=== PATIENT | female | born 1940 | race Caucasian/White ===

== ENCOUNTER 2016-09-08 18:09 | Inpatient (IN) | payer MEDICARE, OTHER ==
[~2016-09-08] VITALS: Ht 162.6 cm; Wt 67.1 kg
[~2016-09-08 18:09] MED LIST: IBUP-1482 PO; MEMA10TA PO; ROSU10TA PO
[2016-09-08] MEDS ORDERED: CELEBREX PO (18:36)
[2016-09-08] MEDS ORDERED: ATOR40TA PO (18:36)
[2016-09-08] MEDS ORDERED: LEVOTHYROXINE PO (18:36)
[2016-09-08 18:51] LABS: BASOPHILS # (AUTO) 0.1 K/uL (0.0-8.0); BASOPHILS % (AUTO) 0.6 % (0.0-2.0); EOSINOPHILS # (AUTO) 0.1 K/uL (0.0-0.7); EOSINOPHILS % (AUTO) 0.7 % (0.0-7.0); HEMATOCRIT 42.2 % (31.2-41.9); HEMOGLOBIN 13.9 g/dL (10.9-14.3); LYMPHOCYTES % (AUTO) 16.2 % (20.5-51.5); MEAN CORPUSCULAR HEMOGLOBIN 31.1 uug (24.7-32.8); MEAN CORPUSCULAR HGB CONC 33 g/dL (32.3-35.6); MEAN CORPUSCULAR VOLUME 94.3 fL (75.5-95.3); MONOCYTES # (AUTO) 0.3 K/uL (2.0-10.0); MONOCYTES % (AUTO) 2.7 % (0.0-11.0); NEUTROPHILS # (AUTO) 9.7 K/uL (1.8-8.9); NEUTROPHILS % (AUTO) 79.8 % (38.5-71.5); PLATELET COUNT (AUTO) 290 K/uL (179-408); RED BLOOD CELL COUNT(AUTO) 4.47 MIL/uL (3.63-4.92); RED CELL DISTRIBUTION WIDTH 12.7 % (12.3-17.7); WHITE BLOOD COUNT (AUTO) 12.2 K/uL (3.8-11.8)
[2016-09-08 18:57] LABS: CALCIUM 9.8 mg/dL (8.5-10.1); CREATININE 0.8 mg/dL (0.6-1.3)
[2016-09-08] MEDS ORDERED: ACETAMINOPHEN 325 MG TABLET ONE (19:27)
[2016-09-08] MEDS ORDERED: DEXAMETHASONE SOD PHOSPHATE 4 MG INJ IV ONE (22:45)
[2016-09-08] MEDS ORDERED: LEVOFLOXACIN 750MG/D5W 150 ML IV ONE ×2 (22:45→23:09)
[2016-09-08] MEDS ORDERED: IV NORMAL SALINE 1000 ML BAG IV ONE (22:45)
[2016-09-08] MEDS ORDERED: DEXAMETHASONE SOD PHOSPHATE 10 MG INJ ONE (23:09)
[2016-09-08] MEDS ORDERED: MORPHINE SULFATE 2 MG/1 ML DISP.SYRIN IV PRN (23:30)
[2016-09-08] MEDS ORDERED: ONDANSETRON 4 MG/2 ML VIAL IV PRN (23:30)
[2016-09-08] MEDS ORDERED: MAGNESIUM HYDROXIDE 30 ML LIQUID UDC PO PRN (23:30)
[2016-09-08] MEDS ORDERED: TEMAZEPAM 7.5 MG CAPSULE PO PRN (23:30)
[2016-09-08] MEDS ORDERED: HYDROCODONE/APAP 5-325MG TABLET PO PRN (23:30)
[2016-09-08] MEDS ORDERED: Z GUARD REMEDY PASTE 57 GM TUBE TOP PRN (23:30)
--- NOTE | 2016-09-09 00:05 | NUR ---
Pt. admitted to TELE, under care of Dr. Ventura Belongs List completed
[2016-09-09 00:15] VITALS: BP 118/73
[2016-09-09] MEDS ORDERED: HYDROCODONE/APAP 5-325MG TABLET ONE (00:56)
[2016-09-09] MEDS ORDERED: ALBUTEROL SULFATE 2.5 MG/3 ML NEBU ONE ×2 (01:02→05:16)
[2016-09-09] MEDS ORDERED: IPRATROPIUM BROMIDE 0.5 MG/2.5 ML NEBU ONE ×2 (01:03→05:15)
[2016-09-09] MEDS: ALBUTEROL SULFATE 2.5 MG/3 ML NEBU NEB PRN ×2 (01:05→05:23)
[2016-09-09] MEDS: IPRATROPIUM BROMIDE 0.5 MG/2.5 ML NEBU NEB PRN ×4 (01:06→20:52)
[2016-09-09 04:00] VITALS: BP 93/50
--- NOTE | 2016-09-09 05:56 | NUR ---
admitted pt from home to ER, c/o chest pain especially when coughing, pt stated [place] and [place] she came [place] from vacation she started coughing, coughing is accompanied by headache and earache, leg pain due to old hip surgery, knee surgery. ambulatory.medicated with norco with good relief. requested HHN and given x2 overnight.non productive cough.no distress. will continue to monitor.sinus rhythm,no chest pain reported. Addendum: 09/09/16 at 0657 by WICHO ANAYA RN productive coughing after few treatment, no bm,voided to bathroom only. all needs attended.
[2016-09-09] MEDS ORDERED: PANTOPRAZOLE SODIUM 40 MG TABLET.DR PO ONE (06:42)
[2016-09-09] MEDS: PANTOPRAZOLE SODIUM 40 MG TABLET.DR PO SCH (06:50)
[2016-09-09 06:57] LABS: BASOPHILS % (AUTO) 0.2 % (0.0-2.0); HEMATOCRIT 38.6 % (31.2-41.9); HEMOGLOBIN 13.2 g/dL (10.9-14.3); LYMPHOCYTES # (AUTO) 0.7 K/uL (20.0-40.0); LYMPHOCYTES % (AUTO) 7.5 % (20.5-51.5); MEAN CORPUSCULAR HEMOGLOBIN 32.1 uug (24.7-32.8); MEAN CORPUSCULAR HGB CONC 34 g/dL (32.3-35.6); MEAN CORPUSCULAR VOLUME 94.1 fL (75.5-95.3); MONOCYTES % (AUTO) 0.4 % (0.0-11.0); NEUTROPHILS # (AUTO) 8.3 K/uL (1.8-8.9); NEUTROPHILS % (AUTO) 91.9 % (38.5-71.5); PLATELET COUNT (AUTO) 272 K/uL (179-408); RED CELL DISTRIBUTION WIDTH 13.1 % (12.3-17.7)
[2016-09-09 07:14] LABS: ALBUMIN 3.3 g/dL (3.4-5.0); BILIRUBIN,TOTAL 0.3 mg/dL (0.2-1.0); CALCIUM 9.8 mg/dL (8.5-10.1); CREATININE 0.8 mg/dL (0.6-1.3); PHOSPHOROUS 2.8 mg/dL (2.5-4.9); POTASSIUM 3.8 mmol/L (3.5-5.1); TOTAL PROTEIN, SERUM 6.8 g/dL (6.4-8.2)
[2016-09-09 07:37] LABS: THYROID STIMULATING HORMONE 0.365 mIU/mL (0.358-3.740)
[2016-09-09] MEDS: ALBUTEROL SULFATE 2.5 MG/ 0.5 ML NEBU NEB PRN ×2 (07:46→20:53)
[2016-09-09] MEDS ORDERED: GUAIFENESIN/CODEINE 5 ML LIQUID UDC PO PRN (09:00)
[2016-09-09 11:47] VITALS: BP 101/48
[2016-09-09] MEDS: ACETAMINOPHEN 325 MG TABLET PO PRN (12:18)
[2016-09-09] MEDS: ASPIRIN 81 MG TAB.CHEW PO SCH (13:15)
[2016-09-09 15:43] VITALS: BP 110/46
[2016-09-09 19:57] VITALS: BP 95/50
--- NOTE | 2016-09-09 20:00 | NUR ---
RECEIVED PATIENT AWAKE IN BED WITH AT BEDSIDE. PATIENT IS A/O X4, CITIZ[place] OF [place] SPEAKING BUT ABLE TO MAKE NEEDS KNOWN. ON TELE SR. DENIES CHEST PAIN OR ANY OTHER PAIN. NO RESP. DISTRESS NOTED. VSS. CALL LIGHT IN REACH. ALL NEEDS ATTENDED. WILL CONTINUE TO MONITOR.
[2016-09-09] MEDS: ATORVASTATIN 40 MG TABLET PO SCH ×2 (20:35→21:00)
[2016-09-09] MEDS ORDERED: LEVOFLOXACIN 500 MG TABLET PO SCH (21:00)
[2016-09-10] VITALS: BP 99/46
[2016-09-10] MEDS: ACETAMINOPHEN 325 MG TABLET PO PRN (00:56)
--- NOTE | 2016-09-10 01:30 | NUR ---
HANDS OFF REPORT FROM JUSTIN PEREZ.
[2016-09-10] MEDS: IPRATROPIUM BROMIDE 0.5 MG/2.5 ML NEBU NEB PRN ×2 (02:33→08:49)
[2016-09-10] MEDS: ALBUTEROL SULFATE 2.5 MG/ 0.5 ML NEBU NEB PRN ×2 (02:33→08:49)
[2016-09-10 04:00] VITALS: BP 97/50
[2016-09-10] MEDS: PANTOPRAZOLE SODIUM 40 MG TABLET.DR PO SCH (06:13)
--- NOTE | 2016-09-10 06:28 | NUR ---
PT IN BED RESTING, IN NO ACUTE SIGNS OF DISTRESS. IV SITE ON R WRIST REMOVED USING ASEPTIC TECHNIQUE PER PTS REQUEST, "I DONT NEED IT". SAFETY MAINTAINED. CALL LIGHT WITHIN REACH.
[2016-09-10 06:43] LABS: CALCIUM 9.3 mg/dL (8.5-10.1); CREATININE 0.7 mg/dL (0.6-1.3); POTASSIUM 4.3 mmol/L (3.5-5.1)
[2016-09-10 06:56] LABS: BASOPHILS % (AUTO) 0.3 % (0.0-2.0); EOSINOPHILS % (AUTO) 0.2 % (0.0-7.0); HEMATOCRIT 35.4 % (31.2-41.9); HEMOGLOBIN 12.1 g/dL (10.9-14.3); LYMPHOCYTES # (AUTO) 1.6 K/uL (20.0-40.0); LYMPHOCYTES % (AUTO) 17.4 % (20.5-51.5); MEAN CORPUSCULAR HEMOGLOBIN 32.3 uug (24.7-32.8); MEAN CORPUSCULAR HGB CONC 34 g/dL (32.3-35.6); MEAN CORPUSCULAR VOLUME 94.3 fL (75.5-95.3); MONOCYTES # (AUTO) 0.5 K/uL (2.0-10.0); MONOCYTES % (AUTO) 5.3 % (0.0-11.0); NEUTROPHILS # (AUTO) 7.1 K/uL (1.8-8.9); NEUTROPHILS % (AUTO) 76.8 % (38.5-71.5); PLATELET COUNT (AUTO) 229 K/uL (179-408); RED BLOOD CELL COUNT(AUTO) 3.76 MIL/uL (3.63-4.92); WHITE BLOOD COUNT (AUTO) 9.2 K/uL (3.8-11.8)
[2016-09-10] MEDS ORDERED: predniSONE 20 MG TABLET PO SCH (08:00)
--- NOTE | 2016-09-10 08:00 | NUR ---
awake alert and oriented, denies of pain, no shortness of breath noted, Tele SR 60's, explained plan of care- verbalized understanding, no cough noted at this time, safety measures maintained, call lite within reach
[2016-09-10] MEDS: ASPIRIN 81 MG TAB.CHEW PO SCH (08:44)
--- NOTE | 2016-09-10 10:45 | NUR ---
seen by Dr Ventura- for d/c today- pt aware and in agreement
[2016-09-10 11:52] VITALS: BP 104/57
--- NOTE | 2016-09-10 12:20 | NUR ---
discharge instructions given , pharmacist here for medication instruction- verbalized understanding carleen ll instructions given. Tele dc/d- states to pick him up
--- NOTE | 2016-09-10 13:15 | NUR ---
escorted to car per w/c in stable condition under 's care- all belongings with her
== END 2016-09-10 13:25 | disposition home or self-care (01) | DRG 203 ==
LOC: ER 18:11 → TELE 23:53
PROVIDERS: ADMIT Family Medicine; ATTEND Internal Medicine
DX: J20.9 Acute bronchitis, unspecified (principal); R07.81 Pleurodynia; E78.5 Hyperlipidemia, unspecified; M19.90 Unspecified osteoarthritis, unspecified site; M81.0 Age-related osteoporosis without current pathological fracture; Z96.659 Presence of unspecified artificial knee joint; Z88.0 Allergy status to penicillin; D72.829 Elevated white blood cell count, unspecified; Z82.49 Family history of ischemic heart disease and other diseases of the circulatory system
CPT/HCPCS: 36415; 70030-TC; 71010; 83605; 83735; 84100; 84443; 85025; 85730; 87040; 93005; 93307; 94640; 94664; A4663; J1100; J1956; J3590; J7030; J7512

== ENCOUNTER 2017-08-26 13:08 | Emergency (ER) | payer MEDICARE, OTHER ==
[~2017-08-26] VITALS: Ht 160 cm; Wt 68.0 kg
[~2017-08-26 13:08] MED LIST changes: +ATOR40TA PO; +CELEBREX PO; -IBUP-1482 PO; +LEVOTHYROXINE PO; -MEMA10TA PO; -ROSU10TA PO
[2017-08-26] MEDS ORDERED: CELEBREX 200 MG (13:35)
[2017-08-26 13:50] LABS: *BILIRUBIN,URIN NEGATIVE (NEGATIVE); *BLOOD, URINE Trace-intact (NEGATIVE); *CLARITY,URINE CLEAR (CLEAR); *COLOR,URINE YELLOW (YELLOW); *KETONES,URINE NEGATIVE (NEGATIVE); *PROTEIN,URINE NEGATIVE (NEGATIVE); *UROBILINOGEN,URINE 0.2 E.U./dl (NORMAL); LEUKOCYTE ESTERASE ,URINE 1+ (NEGATIVE); NITRITE, URINE NEGATIVE (NEGATIVE); UGLUCOSE NEGATIVE (NEGATIVE)
[2017-08-26 13:59] LABS: RBC,URINE 0-3 /HPF (0-3); WBC,URINE 20-50 /HPF (0-3)
[2017-08-26 14:00] LABS: BACTERIA,URINE FEW /HPF (NONE SEEN); SQUAMOUS EPITHELIAL CELL,UR FEW /HPF (NONE SEEN)
[2017-08-26] MEDS ORDERED: PHENAZOPYRIDINE HCL 100 MG TABLET PO ONE (14:15)
[2017-08-26] MEDS ORDERED: PHENAZOPYRIDINE HCL 100 MG TABLET ONE (14:17)
--- NOTE | 2017-08-26 14:19 | NUR ---
Patient discharged to home in stable conditon with family. Written and verbal after care instructions given. Patient and family verbalized understanding of instructions. Stressed follow up with pmd.
== END 2017-08-26 14:20 | disposition home or self-care (01) ==
LOC: ER 13:09
DX: N39.0 Urinary tract infection, site not specified (principal); E78.00 Pure hypercholesterolemia, unspecified; Z90.710 Acquired absence of both cervix and uterus; Z88.0 Allergy status to penicillin; Z91.041 Radiographic dye allergy status; Z88.8 Allergy status to other drugs, medicaments and biological substances; Z79.899 Other long term (current) drug therapy
CPT/HCPCS: 81001; 87077; 87086; 87186; 99284; A4663

== ENCOUNTER 2018-10-12 08:27 | Inpatient (IN) | payer BC, MEDICARE, OTHER ==
[~2018-10-12] VITALS: Ht 160 cm; Wt 68.5 kg
[~2018-10-12 08:27] MED LIST changes: +CELEBREX 200 MG; -CELEBREX PO
--- NOTE | 2018-10-12 08:31 | NUR ---
FIRST DOSE OF NITRO GIVEN. VS 121/75, HR 71.
[2018-10-12] MEDS ORDERED: NITROGLYCERIN 0.4 MG/TAB BOTTLE SL ONE ×2 (08:33→08:45)
[2018-10-12] MEDS ORDERED: ASPIRIN 325 MG TABLET ONE (08:33)
--- NOTE | 2018-10-12 08:36 | NUR ---
2ND DOSE OF NITRO GIVEN. VS 131/81, HR 62.
[2018-10-12] MEDS ORDERED: ONDANSETRON 4 MG/2 ML VIAL ONE (08:37)
--- NOTE | 2018-10-12 08:41 | NUR ---
PT A/OX4, PRESENTS TO THE ER IN PRIVATE VEHICLE, C/O C/P THAT BEGAN THIS MORNING AROUND 0800. PT REPORTS SHE WOKE UP W/ THE C/P, PRESSURE-LIKE IN QUALITY, RADIATING TO THE L SHOULDER, 410, CONSTANT. VSS. SECONDARY COMPLAINT: NAUSEA PT DENIES SOB, VOMITING, DIZZINESS, HEADACHE.
--- NOTE | 2018-10-12 08:41 | NUR ---
3RD DOSE OF NITRO GIVEN. VS 121/54, HR 67.
[2018-10-12] MEDS ORDERED: ACETAMINOPHEN ES 500 MG TABLET PO ONE (08:45)
[2018-10-12] MEDS ORDERED: ASPIRIN 325 MG TABLET PO ONE (08:45)
[2018-10-12] MEDS ORDERED: ONDANSETRON 4 MG/2 ML VIAL IV ONE (08:45)
[2018-10-12] MEDS ORDERED: MORPHINE SULFATE 2 MG/1 ML DISP.SYRIN IV ONE (08:45)
[2018-10-12] MEDS ORDERED: PANTOPRAZOLE SODIUM 40 MG VIAL IV ONE (08:45)
[2018-10-12] MEDS ORDERED: PANTOPRAZOLE SODIUM 40 MG VIAL ONE (08:47)
[2018-10-12] MEDS ORDERED: ACETAMINOPHEN ES 500 MG TABLET ONE (08:47)
[2018-10-12] MEDS ORDERED: MORPHINE SULFATE 2 MG/1 ML DISP.SYRIN ONE (08:48)
[2018-10-12] MEDS ORDERED: LEVO50TA PO (08:50)
[2018-10-12] MEDS ORDERED: ALEN70TA3 PO (08:50)
[2018-10-12] MEDS ORDERED: CELE200C PO (08:50)
[2018-10-12] MEDS ORDERED: ASPI81TA31 PO (08:50)
[2018-10-12] MEDS ORDERED: ATOR40TA PO (08:50)
[2018-10-12] MEDS ORDERED: CHOL10005 PO (08:50)
[2018-10-12 08:52] LABS: BASOPHILS % (AUTO) 0.4 % (0.0-2.0); EOSINOPHILS # (AUTO) 0.1 K/uL (0.0-0.7); EOSINOPHILS % (AUTO) 1.9 % (0.0-7.0); HEMATOCRIT 43.1 % (31.2-41.9); HEMOGLOBIN 14.3 g/dL (10.9-14.3); LYMPHOCYTES # (AUTO) 2.3 K/uL (20.0-40.0); LYMPHOCYTES % (AUTO) 40.6 % (20.5-51.5); MEAN CORPUSCULAR HEMOGLOBIN 31.3 uug (24.7-32.8); MEAN CORPUSCULAR HGB CONC 33 g/dL (32.3-35.6); MEAN CORPUSCULAR VOLUME 94.7 fL (75.5-95.3); MONOCYTES # (AUTO) 0.3 K/uL (2.0-10.0); MONOCYTES % (AUTO) 6.3 % (0.0-11.0); NEUTROPHILS # (AUTO) 2.8 K/uL (1.8-8.9); NEUTROPHILS % (AUTO) 50.8 % (38.5-71.5); PLATELET COUNT (AUTO) 240 K/uL (179-408); RED BLOOD CELL COUNT(AUTO) 4.55 MIL/uL (3.63-4.92); WHITE BLOOD COUNT (AUTO) 5.5 K/uL (3.8-11.8)
[2018-10-12 08:56] LABS: CARBON DIOXIDE 29 mmol/L (21-32); CHLORIDE 106 mmol/L (98-107); CREATININE 0.5 mg/dL (0.6-1.3); GLUCOSE 98 mg/dL (74-106); UREA NITROGEN, BLOOD 17 mg/dL (7-18)
[2018-10-12] MEDS ORDERED: NITROGLYCERIN OINT 1 GM PACKET TP ONE ×2 (08:58→09:00)
[2018-10-12 09:08] LABS: ALANINE AMINOTRANSFERASE 32 U/L (14-59); ALKALINE PHOSPHATASE 81 U/L (50-136); ASPARTATE AMINOTRANSFERASE 21 U/L (15-37); BILIRUBIN,DIRECT 0.1 mg/dL (0.0-0.2); BILIRUBIN,TOTAL 0.7 mg/dL (0.2-1.0); TOTAL PROTEIN, SERUM 7.1 g/dL (6.4-8.2)
--- NOTE | 2018-10-12 09:22 | NUR ---
PT TAKEN TO RADIOLOGY FOR CT SCAN.
--- NOTE | 2018-10-12 09:35 | NUR ---
PT BACK IN ER FROM RADIOLOGY.
--- NOTE | 2018-10-12 09:54 | NUR ---
PAGED EPIC FOR PANEL CALL - AWAITING CALLBACK. ATTEMPT 1.
--- NOTE | 2018-10-12 09:57 | NUR ---
ELENI ARMSTRONG NP, IN ER SPEAKING W/ ER MD RE PT'S ADMISSION.
--- NOTE | 2018-10-12 10:16 | NUR ---
ADMITTING REPORT GIVEN TO ANJU ALBERT.
--- NOTE | 2018-10-12 10:22 | NUR ---
Pt. admitted to TELE 318, under care of WOLFGANG ARMSTRONG. Belongs List completed
[2018-10-12] MEDS ORDERED: IV NS 1000 ML 1,000 ML IV PRN (10:23)
[2018-10-12] MEDS ORDERED: MAG HYDROX/AL HYDROX/SIMETH 30 ML LIQUID UDC PO PRN (10:30)
[2018-10-12] MEDS ORDERED: NITROGLYCERIN 0.4 MG/TAB BOTTLE SL PRN (10:30)
[2018-10-12] MEDS ORDERED: MORPHINE SULFATE 2 MG/1 ML DISP.SYRIN IV PRN (10:30)
--- NOTE | 2018-10-12 10:45 | NUR ---
Received report from ANJU Catherine in ER. Patient admitted to telemetry room 318. Skin check done, belongings documented. assembly machine tool setter in place, patient is sinus rhythm. No complaints of pain or distress noted. Will continue to monitor and assess frequently.
[2018-10-12 11:59] VITALS: BP 123/53
[2018-10-12 15:16] VITALS: BP 91/40
[2018-10-12] MEDS ORDERED: IBUPROFEN 200 MG TABLET PO PRN (15:30)
--- NOTE | 2018-10-12 17:37 | NUR ---
1705 patient reported tingling/numbness on left side of face. Upon assessment swelling noted on upper and lower lips (unilateral to left). Assessed patient, vital signs stable. No changes in mentation. Bilateral strength/counter intelligence agent equal. iap displays analyst Janna assessed patient as well. WALL CLEANER Anabelle made aware, order to discontinue ibuprofen and add to allergies list. Ibuprofen was given once today. Per WALL CLEANER apply warm compress to alleviate headache.
[2018-10-12] MEDS ORDERED: ATORVASTATIN 40 MG TABLET PO SCH (18:00)
--- NOTE | 2018-10-12 18:38 | NUR ---
Patient resting, no complaints of pain or distress noted. Patient currently has warm compress on occipital region. Per reassessment, patient feels headache slowly resolving. steam clean machine operator in place, sinus rhythm. Will endorse care to oncoming shift.
--- NOTE | 2018-10-12 19:20 | NUR ---
Report received from off-going RN. Patient is awake alert and oriented x 4. Lying quietly in bed with family member at the bedside. Denies chest pain and discomfort at this time. No acute distress noted. Pt instructed to notify RN for pain, discomfort and assistance as needed. She verbalized understanding. Call light and pt's belongings placed within reach.
[2018-10-12 20:00] VITALS: BP 105/47
[2018-10-13] VITALS: BP 111/54
--- NOTE | 2018-10-13 03:28 | NUR ---
Report given to oncoming shift RN. The patient is resting quietly with eyes closed. No acute distress noted.
[2018-10-13 04:00] VITALS: BP 102/40
[2018-10-13] MEDS ORDERED: PANTOPRAZOLE SODIUM 40 MG TABLET.DR PO SCH (07:00)
[2018-10-13] MEDS ORDERED: LEVOTHYROXINE SODIUM 50 MCG TABLET PO SCH (07:00)
[2018-10-13 07:04] LABS: BASOPHILS # (AUTO) 0.1 K/uL (0.0-8.0); BASOPHILS % (AUTO) 1.1 % (0.0-2.0); EOSINOPHILS # (AUTO) 0.1 K/uL (0.0-0.7); HEMATOCRIT 39.2 % (31.2-41.9); HEMOGLOBIN 13.1 g/dL (10.9-14.3); LYMPHOCYTES # (AUTO) 1.9 K/uL (20.0-40.0); LYMPHOCYTES % (AUTO) 28.5 % (20.5-51.5); MEAN CORPUSCULAR HGB CONC 34 g/dL (32.3-35.6); MEAN CORPUSCULAR VOLUME 95.6 fL (75.5-95.3); MONOCYTES # (AUTO) 0.5 K/uL (2.0-10.0); MONOCYTES % (AUTO) 6.7 % (0.0-11.0); NEUTROPHILS # (AUTO) 4.2 K/uL (1.8-8.9); NEUTROPHILS % (AUTO) 61.7 % (38.5-71.5); PLATELET COUNT (AUTO) 218 K/uL (179-408); WHITE BLOOD COUNT (AUTO) 6.8 K/uL (3.8-11.8)
[2018-10-13 07:18] LABS: CARBON DIOXIDE 29 mmol/L (21-32); CHLORIDE 107 mmol/L (98-107); CHOLESTEROL 177 mg/dL (<200); CREATININE 0.6 mg/dL (0.6-1.3); GLUCOSE 96 mg/dL (74-106); HDL CHOLESTEROL 64 mg/dL (40-60); MAGNESIUM 2.2 mg/dL (1.8-2.4); POTASSIUM 3.9 mmol/L (3.5-5.1); TRIGLYCERIDES 58 MG/DL (30-150); UREA NITROGEN, BLOOD 15 mg/dL (7-18)
[2018-10-13] MEDS ORDERED: CELECOXIB 200 MG CAPSULE PO SCH (09:00)
[2018-10-13] MEDS ORDERED: ENOXAPARIN SODIUM 60 MG/0.6 ML DISP.SYRIN SQ SCH (09:00)
[2018-10-13] MEDS ORDERED: ASPIRIN 81 MG TAB.CHEW PO SCH (09:00)
[2018-10-13] MEDS ORDERED: ENOXAPARIN SODIUM 40 MG/0.4 ML DISP.SYRIN SQ SCH (10:06)
[2018-10-13 11:30] VITALS: BP 120/56
--- NOTE | 2018-10-13 12:00 | NUR ---
Pt in bed awake, alert, oriented x4, verbally responsive no c/o sob nor cp at this time, ambulatory and steady gait, mild PAT, pt has a twich to L side of face, had marketing services coordinator unequal, weakness to L hand, continue same plan, md aware, no distress.
--- NOTE | 2018-10-13 15:30 | NUR ---
Pt has orders to dc home, dc home instructions were given to pt and , both able to understand all tele dc and sl prior to dc home, will be going home with .
[2018-10-15] MEDS ORDERED: ALENDRONATE SODIUM 70 MG TABLET PO SCH (06:30)
== END 2018-10-13 15:30 | disposition home or self-care (01) | DRG 206 ==
LOC: ER 08:27 → TELE3 10:19
PROVIDERS: ADMIT Registered Nurse; ATTEND Registered Nurse
DX: M94.0 Chondrocostal junction syndrome [Tietze] (principal); I50.30 Unspecified diastolic (congestive) heart failure; J98.11 Atelectasis; F41.9 Anxiety disorder, unspecified; E03.9 Hypothyroidism, unspecified; F43.10 Post-traumatic stress disorder, unspecified; G89.29 Other chronic pain; Z91.041 Radiographic dye allergy status; T14.90XS Injury, unspecified, sequela; W19.XXXS Unspecified fall, sequela; I67.2 Cerebral atherosclerosis; M81.0 Age-related osteoporosis without current pathological fracture; M19.90 Unspecified osteoarthritis, unspecified site; E78.00 Pure hypercholesterolemia, unspecified; R51 Headache; E78.5 Hyperlipidemia, unspecified; Z96.659 Presence of unspecified artificial knee joint; Z82.49 Family history of ischemic heart disease and other diseases of the circulatory system; Z90.710 Acquired absence of both cervix and uterus; Z79.890 Hormone replacement therapy; Z79.83 Long term (current) use of bisphosphonates; Z88.0 Allergy status to penicillin; Z88.6 Allergy status to analgesic agent
CPT/HCPCS: 36415; 70030-TC; 70450; 71045; 83735; 84100; 84443; 85025; 85730; 93005; 93307; A4663; A9150; C9113; G0378; J1650; J2270; J2405; J7030

== ENCOUNTER 2023-06-02 20:29 | Emergency (ER) | payer BC ==
[~2023-06-02] VITALS: Ht 152.4 cm; Wt 61.2 kg
[~2023-06-02 20:29] MED LIST changes: +ALEN70TA3 PO; +ASPI81TA31 PO; +CELE200C PO; -CELEBREX 200 MG; +CHOL10005 PO; +LEVO50TA PO; -LEVOTHYROXINE PO
[2023-06-02] MEDS ORDERED: MUPI22OI2 TP (21:55)
[2023-06-02] MEDS ORDERED: SILVER SULFADIAZINE 1% CREAM 50 GM TP ONE ×2 (22:00→22:01)
[2023-06-02 22:07] VITALS: BP 139/72; O2SAT 99
== END 2023-06-02 22:07 | disposition home or self-care (01) ==
LOC: ER 20:29
DX: T23.211A Burn of second degree of right thumb (nail), initial encounter (principal); E78.00 Pure hypercholesterolemia, unspecified; F32.A Depression, unspecified; Z79.82 Long term (current) use of aspirin; Z79.899 Other long term (current) drug therapy; Z98.890 Other specified postprocedural states; Z88.0 Allergy status to penicillin; Z88.1 Allergy status to other antibiotic agents; W86.8XXA Exposure to other electric current, initial encounter; Y93.89 Activity, other specified; Y92.89 Other specified places as the place of occurrence of the external cause; Y99.8 Other external cause status
CPT/HCPCS: 16020; A4606; A4663